=== PATIENT | female | born 1955 | race Caucasian/White ===

== ENCOUNTER 2020-11-01 14:40 | Inpatient (IN) | payer OTHER ==
[~2020-11-01] VITALS: Ht 152.4 cm; Wt 90.7 kg
[~2020-11-01 14:40] MED LIST: ASPI-231 PO; ATEN-60 PO; CLOP75TA28 PO; ENAL5TAB10 PO; IBUP800T27 PO; SIMV-13 PO
[2020-11-02] VITALS (7 sets, daily range): BP systolic 107–136; BP diastolic 53–82
[2020-11-02] MEDS ORDERED: HYDROcodone-ACET 5/325MG TAB PO PRN (01:30)
[2020-11-02] MEDS ORDERED: NITROGLYCERIN 0.4 MG SL TAB SL PRN (01:30)
[2020-11-02] MEDS ORDERED: ALBUTEROL SULF 2.5 MG/0.5ML(0.5%) NEB SOLN NEB PRN (01:30)
[2020-11-02] MEDS ORDERED: MORPHINE SULF INJ 2 MG/ML SYRINGE 1ML IV PRN ×2 (01:30)
[2020-11-02] MEDS ORDERED: OXYB10GE (02:57)
[2020-11-02] MEDS ORDERED: NITR0.4S29 SL (03:03)
[2020-11-02 05:39] LABS: Basophils # (auto) 0 10 ^3/uL (0-0.2); Basophils % (auto) 0.5 % (0.0-2.0); Eosinophils # (auto) 0.1 10 ^3/uL (0-0.8); Eosinophils % (auto) 2.6 % (0.0-7.0); Hematocrit 39.1 % (36.0-46.0); Hemoglobin 13.7 g/dL (12.2-16.2); Lymphocytes # (auto) 1.8 10 ^3/uL (0.4-5.4); Lymphocytes % (auto) 31.8 % (10.0-50.0); Mean Corpuscular Hemoglobin 30.9 pg (28.0-32.0); Mean Corpuscular Hgb Conc. 35.1 g/dL (32.0-36.0); Mean Corpuscular Volume 88.2 fL (80.0-100.0); Monocytes # (auto) 0.6 10 ^3/uL (0-1.3); Monocytes % (auto) 10.3 % (0.0-12.0); Neutrophils % (auto) 54.8 % (37.0-80.0); Red Blood Cells 4.43 10^6/uL (4.0-5.20); Red Cell Distribution Width 13.5 % (11.8-14.3); White Blood Cell 5.6 10^3/uL (4.4-10.8)
[2020-11-02 05:51] LABS: Calcium 8.5 mg/dL (8.5-10.1); Potassium 3.7 mmol/L (3.5-5.1)
[2020-11-02 05:52] LABS: INR 1.08 (0.9-1.15); Partial Thromboplastin Time 27.6 sec (23.0-31.2)
[2020-11-02 05:58] LABS: BUN/Creatinine Ratio 27.3
[2020-11-02] MEDS ORDERED: ASPirin 81 mg TAB PO SCH (10:00)
[2020-11-02] MEDS ORDERED: ATENOLOL 25 MG TAB PO SCH (10:00)
[2020-11-02] MEDS ORDERED: CLOPIDOGREL BISULFATE 75 MG TAB PO SCH (10:00)
[2020-11-02 10:21] LABS: Urine Bacteria NONE SEEN /hpf (None Seen); Urine Blood Negative /uL (Negative); Urine Mucus FEW (None Seen); Urine Specific Gravity 1.021 (1.001-1.035); Urine WBC 1 /hpf (0 - 5)
[2020-11-02] MEDS ORDERED: IODIXANOL 320MG/ML 100ML BTL IV ONE (12:05)
[2020-11-02] MEDS ORDERED: HEPARIN SODIUM (PORCINE) 5000 UNITS/ML 1ML VIAL ONE (12:05)
[2020-11-02] MEDS ORDERED: ANGIOMAX 250 MG VIAL IV ONE (12:05)
[2020-11-02] MEDS ORDERED: LIDOCAINE 2%HCL (LOCAL ANESTH.) INJ 20ML MDV ONE (12:05)
[2020-11-02] MEDS ORDERED: VERAPAMIL 2.5MG/ML INJ 2ML VIAL IV ONE (12:06)
[2020-11-02] MEDS ORDERED: fentaNYL CITRATE 100 MCG/2 ML VL ONE (12:08)
[2020-11-02] MEDS ORDERED: MIDAZOLAM HCL 1MG/1ML-2 ML VIAL ONE (12:08)
[2020-11-02] MEDS ORDERED: SODIUM CHL 0.9% 0 ML ONE (12:08)
[2020-11-02] MEDS ORDERED: ZINC220C8 PO (16:09)
[2020-11-02] MEDS ORDERED: ASCO100T4 PO (16:09)
[2020-11-02] MEDS ORDERED: OXYB10TA14 PO (16:09)
[2020-11-02] MEDS ORDERED: ALBU108A5 PO (16:09)
[2020-11-02] MEDS ORDERED: OMEGCAP2 PO (16:09)
[2020-11-02] MEDS ORDERED: FLUT110A INH (16:09)
[2020-11-02] MEDS ORDERED: MULT-1018 PO (16:09)
[2020-11-02] MEDS ORDERED: VITA100T3 PO (16:09)
[2020-11-02] MEDS ORDERED: CHOL20007 PO (16:09)
[2020-11-02] MEDS ORDERED: LOS25T PO (16:12)
[2020-11-02] MEDS ORDERED: ATORVASTATIN 20 MG TAB PO SCH (22:00)
== END 2020-11-02 19:50 | disposition home health service (06) | DRG 286 ==
LOC: TELE-CENTR 11-02 00:53
PROVIDERS: ADMIT Internal Medicine; ATTEND Internal Medicine
PROC: 4A023N7 Measurement of Cardiac Sampling and Pressure, Left Heart, Percutaneous Approach (ICD-10-PCS; principal; 2020-11-02)
PROC: B211YZZ Fluoroscopy of Multiple Coronary Arteries using Other Contrast (ICD-10-PCS; 2020-11-02)
DX: I25.10 Atherosclerotic heart disease of native coronary artery without angina pectoris (principal); U07.1 COVID-19; I10 Essential (primary) hypertension; E78.5 Hyperlipidemia, unspecified; Z82.49 Family history of ischemic heart disease and other diseases of the circulatory system; Z95.5 Presence of coronary angioplasty implant and graft; Z88.8 Allergy status to other drugs, medicaments and biological substances; Z20.822 Contact with and (suspected) exposure to COVID-19
CPT/HCPCS: 36415; 71045; 80048; 81001; 85025; 85610; 85730; 86850; 86900; 86901; 87426; 93005; 93458; 99152; 99153; G0378; J2250; Q9967

== ENCOUNTER 2023-12-25 12:23 | Inpatient (IN) | payer OTHER ==
[~2023-12-25] VITALS: Ht 149.9 cm; Wt 85.5 kg
[~2023-12-25 12:23] MED LIST changes: +ALBU108A5 PO; +ASCO100T4 PO; -ASPI-231 PO; +ASPI1TAB20 PO; +CHOL20007 PO; -ENAL5TAB10 PO; +FLUT110A INH; -IBUP800T27 PO; +LOS25T PO; +MULT-1018 PO; +NITR0.4S29 SL; +OMEGCAP2 PO; +OXYB10TA14 PO; -SIMV-13 PO; +SIMV40TA18 PO; +VITA100T3 PO; +ZINC220C8 PO
[2023-12-26] VITALS (15 sets, daily range): BP systolic 110–138; BP diastolic 35–77; PULSE 52–86; RESP 14–60; TEMP 97.6–98.4; O2SAT 93–99
[2023-12-26] MEDS ORDERED: MORPHINE SULFATE INJ 2 MG/ml SYRG IV PRN ×2 (01:30)
[2023-12-26] MEDS ORDERED: ACETAMINOPHEN 325 MG TAB PO PRN (01:30)
[2023-12-26] MEDS ORDERED: ONDANSETRON HCL 4 MG/2 ML VIAL IV PRN (01:30)
[2023-12-26] MEDS ORDERED: NITROGLYCERIN 0.4 MG SL TAB SL PRN (01:30)
[2023-12-26] MEDS ORDERED: DOCUSATE SOD 100 MG CAP PO PRN (01:30)
[2023-12-26] MEDS ORDERED: HYDROcodone-ACET 5/325MG TAB PO PRN (01:30)
[2023-12-26] MEDS ORDERED: DEXTROSE (50%) 50ML SYRG IV PRN (01:45)
[2023-12-26] MEDS ORDERED: METF-370 PO (03:02)
[2023-12-26] MEDS ORDERED: GAB100C PO (03:03)
[2023-12-26] MEDS: ACCU-CHEK COMFORT CURVE STRIP VI SCH (06:29)
[2023-12-26] MEDS: InsuLIN REG 1unit/0.01ml Soln (100units/ml) SC SCH (06:29)
[2023-12-26 07:52] LABS: INR 1.07 (0.9-1.15); Partial Thromboplastin Time 33.6 SEC (24.5-34.5); Prothrombin Time 11.5 sec (9.3-11.8)
[2023-12-26 07:55] LABS: Chloride 109 mmol/L (98-107); Sodium 141 mmol/L (136-145)
[2023-12-26 07:56] LABS: Anion Gap 7 (5-15); Carbon Dioxide 25 mmol/L (20-30)
[2023-12-26 07:59] LABS: Basophils # (auto) 0 10 ^3/uL (0-0.2); Basophils % (auto) 0.6 % (0.0-2.0); Eosinophils # (auto) 0.1 10 ^3/uL (0-0.8); Eosinophils % (auto) 3.1 % (0.0-7.0); Hematocrit 41.3 % (36.0-46.0); Hemoglobin 14.6 g/dL (12.2-16.2); Lymphocytes # (auto) 1.8 10 ^3/uL (0.4-5.4); Lymphocytes % (auto) 38.2 % (10.0-50.0); Mean Corpuscular Hemoglobin 31.5 pg (28.0-32.0); Mean Corpuscular Hgb Conc. 35.4 g/dL (32.0-36.0); Mean Corpuscular Volume 88.9 fL (80.0-100.0); Monocytes # (auto) 0.5 10 ^3/uL (0-1.3); Monocytes % (auto) 10.8 % (0.0-12.0); Neutrophils # (auto) 2.3 10 ^3/uL (1.6-8.6); Neutrophils % (auto) 47.3 % (37.0-80.0); Nucleated Red Blood Cells % 0.1 %; Platelet Count (auto) 187 10^3/uL (140-450); Red Blood Cells 4.65 10^6/uL (4.0-5.20); Red Cell Distribution Width 13.4 % (11.8-14.3); White Blood Cell 4.8 10^3/uL (4.4-10.8)
[2023-12-26 08:01] LABS: BUN/Creatinine Ratio 20.3 (10.0-20.0); Blood Urea Nitrogen 13 mg/dL (9-23); Glucose 102 mg/dL (74-106)
[2023-12-26] MEDS: ASPirin-EC 81 mg tab PO SCH (09:26)
[2023-12-26] MEDS ORDERED: ENOXAPARIN SOD 100 MG/1 ML SYRINGE SC SCH (10:00)
[2023-12-26 14:15] LABS: Urine Bacteria FEW /hpf (None Seen); Urine Blood Negative /uL (Negative); Urine Clarity Clear (Clear); Urine Color Light-Yellow (Yellow); Urine Protein, UAD Negative (Negative); Urine Specific Gravity 1.013 (1.001-1.035); Urine Urobilinogen Normal (Negative); Urine WBC <1 /hpf (0 - 5); Urine pH 6.5 (5.0-9.0)
[2023-12-26] MEDS: HEPARIN IN NS 1000Units/500mL 1,500 ML ONE (15:56)
[2023-12-26] MEDS: IODIXANOL 320MG/ML 100ML BTL IV ONE (15:56)
[2023-12-26] MEDS: MIDAZOLAM HCL 2MG/2ML 2ml VIAL (1mg/ml) ONE (16:17)
[2023-12-26] MEDS: fentaNYL CITRATE 100 MCG/2 ML VL ONE (16:17)
[2023-12-26] MEDS: ANGIOMAX 250 MG VIAL IV ONE (16:18)
[2023-12-26] MEDS: LIDOCAINE 2%HCL (LOCAL ANESTH.) INJ 20ML MDV ONE (16:18)
[2023-12-26] MEDS: SODIUM CHL 0.9% 50 ML ONE (16:18)
[2023-12-26] MEDS: VERAPAMIL 2.5MG/ML INJ 2ML VIAL IV ONE (16:41)
[2023-12-26] MEDS: HEPARIN SODIUM (PORCINE) 5000 UNITS/ML 1ML VIAL ONE (16:53)
[2023-12-26] MEDS: ALBUTEROL SULF 2.5 MG/0.5ML(0.5%) NEB SOLN NEB SCH (19:49)
[2023-12-26] MEDS: IPRATROPIUM BROM 0.5 MG/2.5ML INH SOL NEB SCH (19:49)
[2023-12-27] VITALS (10 sets, daily range): BP systolic 121–137; BP diastolic 52–72; PULSE 63–89; RESP 14–18; TEMP 97.7–98.1; O2SAT 95–100
[2023-12-27] MEDS: ATORVASTATIN 20 MG TAB PO SCH (00:07)
[2023-12-27 08:25] LABS: Chloride 109 mmol/L (98-107); Potassium 3.8 mmol/L (3.5-5.1); Sodium 140 mmol/L (136-145)
[2023-12-27 08:26] LABS: Anion Gap 6 (5-15); Carbon Dioxide 25 mmol/L (20-30)
[2023-12-27 08:27] LABS: Calcium 9.8 mg/dL (8.7-10.4)
[2023-12-27 08:32] LABS: BUN/Creatinine Ratio 20.7 (10.0-20.0); Blood Urea Nitrogen 12 mg/dL (9-23); Glucose 117 mg/dL (74-106)
[2023-12-27 08:41] LABS: Basophils # (auto) 0 10 ^3/uL (0-0.2); Basophils % (auto) 0.5 % (0.0-2.0); Eosinophils # (auto) 0.1 10 ^3/uL (0-0.8); Eosinophils % (auto) 2.1 % (0.0-7.0); Hematocrit 40.6 % (36.0-46.0); Hemoglobin 14.1 g/dL (12.2-16.2); Lymphocytes # (auto) 1.6 10 ^3/uL (0.4-5.4); Mean Corpuscular Hemoglobin 30.7 pg (28.0-32.0); Mean Corpuscular Hgb Conc. 34.7 g/dL (32.0-36.0); Mean Corpuscular Volume 88.6 fL (80.0-100.0); Monocytes # (auto) 0.6 10 ^3/uL (0-1.3); Monocytes % (auto) 11.6 % (0.0-12.0); Neutrophils % (auto) 55.8 % (37.0-80.0); Nucleated Red Blood Cells % 0.3 %; Platelet Count (auto) 173 10^3/uL (140-450); Red Blood Cells 4.58 10^6/uL (4.0-5.20); Red Cell Distribution Width 13.4 % (11.8-14.3); White Blood Cell 5.4 10^3/uL (4.4-10.8)
[2023-12-27 09:45] LABS: Hepatitis B Surface Antigen Negative (Negative)
[2023-12-27 10:07] LABS: Hepatitis C Antibody Negative (Negative)
[2023-12-27] MEDS ORDERED: CLOP75TA70 PO (15:33)
[2023-12-27] MEDS ORDERED: FLUT250M2 INH (15:33)
== END 2023-12-27 16:15 | disposition home or self-care (01) | DRG 287 ==
LOC: CENTRAL 12-26 00:59 → TELE-CENTR 12-26 02:49
PROVIDERS: ADMIT Internal Medicine; ATTEND Internal Medicine
PROC: 4A023N7 Measurement of Cardiac Sampling and Pressure, Left Heart, Percutaneous Approach (ICD-10-PCS; principal; 2023-12-26)
PROC: B2111ZZ Fluoroscopy of Multiple Coronary Arteries using Low Osmolar Contrast (ICD-10-PCS; 2023-12-26)
DX: I25.110 Atherosclerotic heart disease of native coronary artery with unstable angina pectoris (principal); E11.9 Type 2 diabetes mellitus without complications; E66.01 Morbid (severe) obesity due to excess calories; E78.5 Hyperlipidemia, unspecified; J45.909 Unspecified asthma, uncomplicated; M79.7 Fibromyalgia; I10 Essential (primary) hypertension; Z95.5 Presence of coronary angioplasty implant and graft; Z88.8 Allergy status to other drugs, medicaments and biological substances; Z79.899 Other long term (current) drug therapy; Z82.49 Family history of ischemic heart disease and other diseases of the circulatory system; Z80.1 Family history of malignant neoplasm of trachea, bronchus and lung; Z68.38 Body mass index [BMI] 38.0-38.9, adult
CPT/HCPCS: 36415; 80048; 81001; 82962; 84484; 85025; 85610; 85730; 86803; 86850; 86900; 86901; 87081; 87340; 93005; 93454; 94640; 99152; G0378; J1815; J2250; Q9967

== ENCOUNTER 2024-10-28 14:38 | Inpatient (IN) | payer OTHER ==
[~2024-10-28] VITALS: Ht 149.9 cm; Wt 87.9 kg
[~2024-10-28 14:38] MED LIST changes: -ASCO100T4 PO; -CHOL20007 PO; -CLOP75TA28 PO; +CLOP75TA70 PO; +FLUT250M2 INH; +GAB100C PO; +METF-370 PO; -MULT-1018 PO; -OMEGCAP2 PO; -OXYB10TA14 PO; -VITA100T3 PO; -ZINC220C8 PO
[2024-10-28] MEDS ORDERED: NITROGLYCERIN 0.4 MG SL TAB SL PRN (20:15)
[2024-10-28] MEDS ORDERED: MORPHINE SULFATE INJ 2 MG/ml SYRG IV PRN (20:15)
[2024-10-28] MEDS ORDERED: ONDANSETRON HCL 4 MG/2 ML VIAL IV PRN (20:15)
[2024-10-28] MEDS ORDERED: HYDROcodone-ACET 5/325MG TAB PO PRN (20:15)
[2024-10-28 20:48] VITALS: BP 124/92; PULSE 74; RESP 18; TEMP 98.1; O2SAT 92
[2024-10-28 21:00] VITALS: BP 124/92; PULSE 74; RESP 18; TEMP 98.1; O2SAT 92
[2024-10-28] MEDS: ATORVASTATIN 20 MG TAB PO SCH (22:00)
[2024-10-28 22:03] VITALS: PULSE 74; RESP 18; O2SAT 92
[2024-10-28] MEDS: ACETAMINOPHEN 325 MG TAB PO PRN (23:13)
[2024-10-29] VITALS (10 sets, daily range): BP systolic 123–167; BP diastolic 61–78; PULSE 64–80; RESP 9–18; TEMP 36.5; O2SAT 93–99
--- NOTE | 2024-10-29 01:04 | DVHHP2 ---
Admitting Diagnosis: Unstable Angina History of Present Illness History Source: Patient Exam Limitations: No limitations HPI Mrs. Randa Leonard is a 69 yo female with a history of SD with cardiac stents , Hypertension, DM, Asthma, Fibromyalgia, hyperlipidemia who [place] [facility] [place] angina for therapeutic coronary angiogram intervention. [facility] therapeutic coronary angiogram intervention. Patient had [place] [facility] with left sided chest pain radiating to left arm, neck and across right chest wall onset x 3 days ago. Patient reports she has been experiencing chest tightness with associated shortness of breath and fatigue. Patient denies fevers, chills, N/VD, headaches, dizziness, vision changes, cough, congestion, abdominal pain, dysuria, numbness or tingling of extremities. Patient admitted for further intervention. CXR: no acute disease CTA chest: no evidence of acute intrathoracic abnormality, no evidence of pulmonary embolism, no aortic aneurysm or dissection. troponin levels: 0.000, 0.000, 0.030 INR 1.01, PT 11.7, PTT 34.7 Home Meds Active Scripts Clopidogrel Bisulfate (CLOPIDOGREL) 75 Mg Tab, 1 TAB PO DAILY, #30 TAB 5 Refills Prov:MENDOZA RASCON MD 12/27/23 Reported Medications Gabapentin (Gabapentin) 100 Mg Cap, 1 CAP PO DAILY 12/26/23 Metformin Hydrochloride (Metformin Hcl) 500 Mg Tab, 1 TAB PO DAILY 12/26/23 Losartan Potassium (Losartan Potassium) 25 Mg Tab, 1 TAB PO DAILY 11/02/20 Albuterol Sulfate (Albuterol Sulfate Hfa) 108 Mcg/Act Aer, 1 PUFF PO PRN 11/02/20 Nitroglycerin (NTROSTAT SUBLINGUAL) 0.4 Mg Sl, 0.4 MG SL PRN, TAB *MAY REPEAT EVERY 5 MINUTES X 3 TOTAL IF NO RELIEF, INITIATE ANALGESIC THERAPY. NOTIFY PHYSICIAN *Do not crush. 11/02/20 Aspirin (Aspir-81) 81 Mg Tab, 1 TAB PO DAILY, #30 TAB 5 Refills 06/07/18 Simvastatin (Simvastatin) 40 Mg Tab, 1 TAB PO QPM, #30 TAB 5 Refills 06/07/18 Atenolol (Atenolol) 25 Mg Tab, 1 TAB PO HS, #30 TAB 5 Refills 06/07/18 Past Medical History Cardiac: HTN, SD, Hyperlipidemia Pulmonary: Asthma Central Nervous System: Periperal neuropathy Rheumotologic: Fibromyalgia Patient Family History: Cardiac pacemaker G8 BROTHER Cardiovascular disease G8 FATHER, , Cause: Heart disease FH: lung cancer G8 MOTHER, , Cause: Lung cancer Stent G8 BROTHER Smoker: No Hx (Negative) Alocohol: None Drugs: None Domestic Violence: Neg Review of Systems Constitutional: No symptom reported Ears, Nose, & Throat: No symptom reported Eyes: No symptom reported Pulmonary/Respiratory: Dyspnea Cardiovascular: Chest Pain Gastrointestinal: No symptom reported Genitourinary: No symptom reported Musculoskeletal: No symptom reported Skin: No symptom reported Psychiatric: No symptom reported Endocrine: No symptom reported Hemotologic/Lymphatic: No symptom reported H&P Exam Vital Signs Vital Signs Date Time Temp Pulse Resp B/P (MAP) Pulse Ox O2 Delivery O2 Flow Rate FiO2 10/28/24 21:00 98.1 74 18 124/92 (103) 92 98.1 General Appeara: Well developed, Well nourished, Normal Appearance Head Exam: Normal inspection Neck Exam: Normal inspection, Non-tender, Normal alignment Eye Exam: bilateral eye Normal inspection, bilateral eye PERRL, bilateral eye EOMI Ear Exam: bilateral ear Auricle normal Nasal Exam: Normal inspection Mouth: Normal Inspection Pulmonary/Respiratory: Normal inspection, Normal breath sounds, Chest non- tender, Lungs clear Cardiovascular/Chest: Normal inspection, Regular rate, Normal Rhythm Peripheral Pulses: 2+ dorsalis pedis (R), 2+ dorsalis pedis (L), 2+ Radial (R), 2+ Radial (L) Abdominal Exam: Normal bowel sounds, Soft, No tenderness Rectal Exam: Deferred FIRM ADMINISTRATOR Exam: Normal hearing, Normal speech, PERRL Motor/Sensory: Normal sensory function, Normal motor function Neuro/Mental St: Alert, Oriented Appearance: Appropriate appearance, Appropriate insight Eye contact/ Speech: Cooperative, Good eye contact, Normal speech Thoughts/Psych: Normal thought pattern Skin Exam: Normal inspection, Normal color, Warm/dry Labs/Xrays Labs Test 10/28/24 22:36 Range/Units Troponin I High Sensitivity < 3 L </=34 ng/L Assessment/Plan Problem List: (1) Unstable angina Plan This is a 69 yo female with known history of SD with cardiac stents, asthma, HLD, HTN, neuropathy, fibromyalgia, who presents as [place] [facility], unstable angina for therapeutic cardiac angiogram intervention. 1. Unstable Angina 2. Chronic Hypertension 3. hx of Asthma 4. Fibromyalgia 5. Hyperlipidemia Plan Admit Telemetry unit Cardiology consultation appreciated, ASA , Statin, Beta Roula Serial troponin levels BMP, CBC NPO after midnight Discussed all above with patient who verbalizes agreement and understanding of care plan. All questions were answered. Discussed with admitting/supervising MD. Plan discussed with: Patient, Other Code Visit Code Visit Total Time (mins): 45 NETO FAIRCHILD SENIOR ADMINISTRATIVE ASSISTANT Oct 29, 2024 01:04
[2024-10-29 06:26] LABS: Hematocrit 36.4 % (36.0-46.0); Hemoglobin 12.5 g/dL (12.2-16.2); Mean Corpuscular Hemoglobin 29.9 pg (28.0-32.0); Mean Corpuscular Volume 87.0 fL (80.0-100.0); Nucleated Red Blood Cells % 0.2 %
[2024-10-29 06:29] LABS: INR 1.04 (0.9-1.15); Prothrombin Time 11.0 sec (9.3-11.8)
[2024-10-29 06:33] LABS: Potassium 3.9 mmol/L (3.5-5.1); Sodium 142 mmol/L (136-145)
[2024-10-29 06:34] LABS: Anion Gap 6 (5-15); Carbon Dioxide 28 mmol/L (20-31)
[2024-10-29 06:35] LABS: Calcium 9.2 mg/dL (8.7-10.4)
[2024-10-29 06:39] LABS: BUN/Creatinine Ratio 24.1 (10.0-20.0); Blood Urea Nitrogen 13 mg/dL (9-23); Glucose 87 mg/dL (74-106)
[2024-10-29 06:41] LABS: Chloride 108 mmol/L (98-107)
[2024-10-29] MEDS: ATORVASTATIN 20 MG TAB PO SCH (09:15)
[2024-10-29 09:39] LABS: Magnesium 1.9 mg/dL (1.6-2.6)
[2024-10-29 09:41] LABS: Cholesterol 137.0 mg/dL (< 200); HDL Cholesterol 46.0 mg/dL (40-59)
[2024-10-29 09:44] LABS: Triglycerides 154.0 mg/dL (< 150)
[2024-10-29] MEDS: PANTOPRAZOLE 40 MG/10 ML VIAL INJ IV SCH (10:00)
[2024-10-29] MEDS ORDERED: ATENOLOL 25 MG TAB PO SCH (10:00)
[2024-10-29] MEDS: LIDOCAINE 2%HCL (LOCAL ANESTH.) INJ 20ML MDV ONE (10:27)
[2024-10-29] MEDS: SODIUM CHL 0.9% 0 ML ONE (10:35)
[2024-10-29] MEDS: VERAPAMIL 2.5MG/ML INJ 2ML VIAL IV ONE ×2 (10:35→11:21)
[2024-10-29] MEDS: HEPARIN SODIUM (PORCINE) 5000 UNITS/ML 1ML VIAL ONE (10:35)
[2024-10-29] MEDS: ANGIOMAX 250 MG VIAL IV ONE (10:35)
[2024-10-29] MEDS: MIDAZOLAM HCL 2MG/2ML 2ml VIAL (1mg/ml) ONE ×2 (10:35→12:16)
[2024-10-29] MEDS: fentaNYL CITRATE 100 MCG/2 ML VL ONE ×2 (10:35→12:17)
--- NOTE | 2024-10-29 12:29 | DVHOP2 ---
Operative Report - 2 Report Details Date: 10/29/24 Preop Diagnosis: CAD Postop Diagnosis: CAD Surgeon: Jb Maya MD Anesthesiologist: Conscious sedation Anesthesia: Mac, Local Consent: The patient was informed of the risks and benefits of the procedure. These include but are not limited to complications of anesthesia, postoperative infection, incomplete relief of symptoms, recurrence of symptoms, damage to blood vessels, nerves and tendons, deep venous thrombosis, pulmonary embolism and possible need for repeat surgery in the future. Complications: No complications Findings: Vasospasm Indications for Surgery: Chest pain Name of Procedure Performed Left heart catheterization. Bilateral cine coronary angiography. Left ventriculography. Intracoronary nitroglycerin administration Procedure Details Procedure Details: Prior local anesthesia with 2% lidocaine to the right groin and full informed consent obtained the patient was prepped and draped in usual fashion followed by placement of a six Lao sheath into the right femoral artery under fluoroscopic and ultrasound guidance. We attempted both radials however they were rather small and not amenable to angiography. Abhijit catheters were used to cannulate both right and left coronary ostia. Ventriculography was performed. No complications. Hemodynamics aortic blood pressure was 135/80. End-diastolic pressure was 15. There was no gradient across the aortic valve on pullback. Coronary anatomy: RCA is large and normal. There was slight spasm and dampening of pressure waveforms in the proximal segment of the RCA. This was relieved with 200 mcg of nitroglycerin at which point spasm was relieved and pressures were normalized upon cannulation. This is consistent with a vasospastic angina/vasospasm of the RCA. PDA and posterolateral branches are also normal. Left main is large and normal. Left anterior descending is a large vessel it is normal in its proximal mid and distal segments. The proximal segment has been stented without in stent restenosis. Diagonals are free of significant disease with the exception of the 1st diagonal which has been jailed and has a proximally 50-60% stenosis. Circumflex is large with two marginals free of significant disease. Ventriculography was performed in the MCLAIN projection showing an EF of approximately 55%. Impression: Normal left ventricular ejection fraction. Mildly elevated left ventricular end-diastolic pressure at rest. Vasospasm of the RCA we will leave with nitroglycerin. No significant in stent restenosis. Patent LAD circumflex and RCA otherwise. Recommendations continue with medical therapy. Risk factor modification to continue. Initiate calcium channel blockers. Condition Good Disposition Date of Service: Oct 29, 2024 Billing Provider: JB MAYA Sr., MD Cardiology Common Codes: 97601-[facility] INP/OBS CARE (High) Cardiology Procedure Codes: 15135-[facility] HE[facility] CATH W/INTRA INJ (Left heart catheterization. Bilateral cine coronary angiography. Left ventriculography. Intracoronary administration of nitroglycerin for the relief of vasospasm.) JB MAYA Sr., MD Oct 29, 2024 12:29
--- NOTE | 2024-10-29 13:11 | DVHCONRES ---
Date Seen: Oct 29, 2024 Resident Creating Document: TONYA COCHRAN RESDIENT History of Present Illness This is a 69-year-old female with past medical history of coronary artery disease, hypertension, diabetes, asthma, fibromyalgia and dyslipidemia came to the hospital due to chest pain sensory days. She describes the pain as generalized substernal pain, radiating to the neck and left shoulder, 7/10, intermittent with no clear exacerbating or relieving factor. She also reports of mild shortness of breaths, sweating and generalized weakness. She denies fev er, cough, palpitation, or any recent sick contacts chest trauma. PMHx: coronary artery disease, hypertension, diabetes, asthma, fibromyalgia and dyslipidemia Social history: Ex-smoker with 10 pack year history, denies current smoking or any drug use. Home medication: Losartan 25 mg, simvastatin, clopidogrel, gabapentin, metoprolol, aspirin, clopidogrel Allergic history: Nifedipine, procaine, squash and zucchini Patient seen and examined at the bedside. Patient is feeling better since admission but still complained of mild shortness of breaths. Family History: Cardiac pacemaker G8 BROTHER Cardiovascular disease G8 FATHER, , Cause: Heart disease FH: lung cancer G8 MOTHER, , Cause: Lung cancer Stent G8 BROTHER Allergies: Coded Allergies: Nifedipine (Verified Allergy, Mild, 06/06/18) Procaine (Verified Allergy, Mild, 06/06/18) Uncoded Allergies: squash (Allergy, Unknown, 12/26/23) zuchini (Allergy, Unknown, 12/26/23) Home Meds Active Scripts Clopidogrel Bisulfate (CLOPIDOGREL) 75 Mg Tab, 1 TAB PO DAILY, #30 TAB 5 Refills Prov:MENDOZA RASCON MD 12/27/23 Reported Medications Gabapentin (Gabapentin) 100 Mg Cap, 1 CAP PO DAILY 12/26/23 Metformin Hydrochloride (Metformin Hcl) 500 Mg Tab, 1 TAB PO DAILY 12/26/23 Losartan Potassium (Losartan Potassium) 25 Mg Tab, 1 TAB PO DAILY 11/02/20 Albuterol Sulfate (Albuterol Sulfate Hfa) 108 Mcg/Act Aer, 1 PUFF PO PRN 11/02/20 Nitroglycerin (NTROSTAT SUBLINGUAL) 0.4 Mg Sl, 0.4 MG SL PRN, TAB *MAY REPEAT EVERY 5 MINUTES X 3 TOTAL IF NO RELIEF, INITIATE ANALGESIC THERAPY. NOTIFY PHYSICIAN *Do not crush. 11/02/20 Aspirin (Aspir-81) 81 Mg Tab, 1 TAB PO DAILY, #30 TAB 5 Refills 06/07/18 Simvastatin (Simvastatin) 40 Mg Tab, 1 TAB PO QPM, #30 TAB 5 Refills 06/07/18 Atenolol (Atenolol) 25 Mg Tab, 1 TAB PO HS, #30 TAB 5 Refills 06/07/18 Current Medications Current Medications Medications (Trade) Dose Ordered Sig/Luke Route PRN Reason Start Time Stop Time Status Last Admin Nitroglycerin (Ntrostat Sublingual) 0.4 mg Q5MINP PRN SL FOR CHEST PAIN 10/28/24 20:15 Morphine Sulfate 2 mg Q30M PRN IV FOR CHEST PAIN 10/28/24 20:15 Ondansetron HCl (Zofran) 4 mg Q6HPRN PRN IV NAUSEA / VOMITING 10/28/24 20:15 Aspirin 81 mg DAILY PO 10/29/24 10:00 Atorvastatin Calcium (Lipitor) 40 mg HS PO 10/28/24 22:00 10/29/24 09:10 DC Acetaminophen (Tylenol Tablet) 650 mg Q6HPRN PRN PO PAIN SCALE 1-3 OR TEMP>100.4 10/28/24 20:15 10/28/24 23:13 Pantoprazole Sodium (Protonix) 40 mg DAILY IV 10/29/24 10:00 Acetaminophen/ Hydrocodone Bitart ([place] 5/325MG Tab) 1 tab Q6HPRN PRN PO PAIN SCALE 1 THRU 6 10/28/24 20:15 10/28/24 23:01 DC Atenolol (Tenormin Tablet) 25 mg DAILY PO 10/29/24 10:00 Acetaminophen/ Hydrocodone Bitart ([place] 5/325MG Tab) 1 tab Q6HPRN PRN PO PAIN SCALE 4 THRU 6 10/28/24 23:00 Atorvastatin Calcium (Lipitor) 80 mg HS PO 10/29/24 09:15 Vital Signs Vital Signs Date Time Temp Pulse Resp B/P (MAP) Pulse Ox O2 Delivery O2 Flow Rate FiO2 10/29/24 12:35 69 11 152/63 (92) 97 10/29/24 12:20 97.7 97.7 10/29/24 08:00 Room Air* 0 21 Physical Exam General Appearance: Alert, Oriented X3, Cooperative, No acute distress HEENT: Atraumatic, PERRLA, EOMI, Mucous membrane moist/pink Respiratory: Clear to auscultation, Normal air movement Cardiovascular: Regular rate, Normal S1, Normal S2, No murmurs, no chest wall tenderness Abdominal: Normal bowel sounds, Soft, No tenderness, No hepatospenomegaly, No masses Extremities: No clubbing, No cyanosis, No edema, Normal pulses, No tenderness/swelling Skin: No rashes, No breakdown, No significant lesion Neuro: Normal gait, Normal speech, Strength at 5/5 X4 ext, Normal tone, Sensation intact, Cranial nerves 3-12 NL, Reflexes 2+ Psych/Mental Status: Mental status NL, Mood NL Labs/Diagnostic Data Labs Test 10/29/24 05:19 Range/Units White Blood Count 4.2 L 4.4-10.8 10^3/uL Red Blood Count 4.18 4.0-5.20 10^6/uL Hemoglobin 12.5 12.2-16.2 g/dL Hematocrit 36.4 36.0-46.0 % Mean Corpuscular Volume 87.0 80.0-100.0 fL Mean Corpuscular Hemoglobin 29.9 28.0-32.0 pg Mean Corpuscular Hemoglobin Concent 34.4 32.0-36.0 g/dL Red Cell Distribution Width 13.6 11.8-14.3 % Platelet Count 155 140-450 10^3/uL Mean Platelet Volume 8.3 6.9-10.8 fL Neutrophils (%) (Auto) 50.9 37.0-80.0 % Lymphocytes (%) (Auto) 33.7 10.0-50.0 % Monocytes (%) (Auto) 11.8 0.0-12.0 % Eosinophils (%) (Auto) 3.1 0.0-7.0 % Basophils (%) (Auto) 0.5 0.0-2.0 % Neutrophils # (Auto) 2.1 1.6-8.6 10 ^3/uL Lymphocytes # (Auto) 1.4 0.4-5.4 10 ^3/uL Monocytes # (Auto) 0.5 0-1.3 10 ^3/uL Eosinophils # (Auto) 0.1 0-0.8 10 ^3/uL Basophils # (Auto) 0 0-0.2 10 ^3/uL Nucleated Red Blood Cells 0.2 % Prothrombin Time 11.0 9.3-11.8 sec Prothrombin Time INR 1.04 0.9-1.15 Sodium Level 142 136-145 mmol/L Potassium Level 3.9 3.5-5.1 mmol/L Chloride Level 108 H 98-107 mmol/L Carbon Dioxide Level 28 20-31 mmol/L Anion Gap 6 5-15 Blood Urea Nitrogen 13 9-23 mg/dL Creatinine 0.54 L 0.550-1.02 mg/dL Glomerular Filtration Rate Calc 101 >90 mL/min BUN/Creatinine Ratio 24.1 H 10.0-20.0 Serum Glucose 87 74-106 mg/dL Calcium Level 9.2 8.7-10.4 mg/dL Magnesium Level 1.9 1.6-2.6 mg/dL Troponin I High Sensitivity 4 </=34 ng/L B-Type Natriuretic Peptide 36.89 0-100 pg/mL Triglycerides Level 154 H < 150 mg/dL Cholesterol Level 137 < 200 mg/dL LDL Cholesterol 78 < 100 mg/dL HDL Cholesterol 46 40-59 mg/dL Thyroid Stimulating Hormone (TSH) 1.26 0.55-4.78 uIU/mL Assessment Chest pain, possibly cardiac, likely due to coronary vasospasm Hypertension History of coronary artery disease Dyslipidemia Diabetes type 2 Fibromyalgia * Serial trop I and BNP is within normal limits * Left-sided heart catheterization performed, showed normal LVEF, mild elevated LV end-diastolic pressure, vasospasm of RCA which improved with nitroglycerin, patent LAD, circumflex and RCA Plan/recommendation * Switched beta kayden to Cardizem * Continue dual antiplatelet * Continue home meds * Rest of plan per primary team * We sign off the patient * Discharge plan from Cardiology standpoint: Switch beta kayden to Cardizem 120 mg daily, follow up with the Cardiology on outpatient basis Caregiver giving us the opportunity to take care of your patient. Please call back if you have any question/concern. Plan discussed with: Patient, Other (RN) TONYA COCHRAN Oct 29, 2024 13:11
[2024-10-29] MEDS: LOSARTAN POTASSIUM 25 MG TAB PO ONE (13:15)
[2024-10-29] MEDS ORDERED: dilTIAZem 120MG ER CAP PO ONE (13:15)
[2024-10-29] MEDS ORDERED: dilTIAZem 120MG ER CAP PO SCH (13:21)
[2024-10-29] MEDS ORDERED: DILT120T8 PO (13:55)
--- NOTE | 2024-10-29 13:57 | DVHDS2 ---
Discharge Summary Date of Admission Oct 28, 2024 at 20:08 Date of Discharge: Oct 29, 2024 Labs/Diagnostic Data: Laboratory Results Test 10/29/24 05:19 White Blood Count 4.2 10^3/uL (4.4-10.8) Red Blood Count 4.18 10^6/uL (4.0-5.20) Hemoglobin 12.5 g/dL (12.2-16.2) Hematocrit 36.4 % (36.0-46.0) Mean Corpuscular Volume 87.0 fL (80.0-100.0) Mean Corpuscular Hemoglobin 29.9 pg (28.0-32.0) Mean Corpuscular Hemoglobin Concent 34.4 g/dL (32.0-36.0) Red Cell Distribution Width 13.6 % (11.8-14.3) Platelet Count 155 10^3/uL (140-450) Mean Platelet Volume 8.3 fL (6.9-10.8) Neutrophils (%) (Auto) 50.9 % (37.0-80.0) Lymphocytes (%) (Auto) 33.7 % (10.0-50.0) Monocytes (%) (Auto) 11.8 % (0.0-12.0) Eosinophils (%) (Auto) 3.1 % (0.0-7.0) Basophils (%) (Auto) 0.5 % (0.0-2.0) Neutrophils # (Auto) 2.1 10 ^3/uL (1.6-8.6) Lymphocytes # (Auto) 1.4 10 ^3/uL (0.4-5.4) Monocytes # (Auto) 0.5 10 ^3/uL (0-1.3) Eosinophils # (Auto) 0.1 10 ^3/uL (0-0.8) Basophils # (Auto) 0 10 ^3/uL (0-0.2) Nucleated Red Blood Cells 0.2 % Prothrombin Time 11.0 sec (9.3-11.8) Prothrombin Time INR 1.04 (0.9-1.15) Sodium Level 142 mmol/L (136-145) Potassium Level 3.9 mmol/L (3.5-5.1) Chloride Level 108 mmol/L (98-107) Carbon Dioxide Level 28 mmol/L (20-31) Anion Gap 6 (5-15) Blood Urea Nitrogen 13 mg/dL (9-23) Creatinine 0.54 mg/dL (0.550-1.02) Glomerular Filtration Rate Calc 101 mL/min (>90) BUN/Creatinine Ratio 24.1 (10.0-20.0) Serum Glucose 87 mg/dL (74-106) Calcium Level 9.2 mg/dL (8.7-10.4) Magnesium Level 1.9 mg/dL (1.6-2.6) Troponin I High Sensitivity 4 ng/L (</=34) B-Type Natriuretic Peptide 36.89 pg/mL (0-100) Triglycerides Level 154 mg/dL (< 150) Cholesterol Level 137 mg/dL (< 200) LDL Cholesterol 78 mg/dL (< 100) HDL Cholesterol 46 mg/dL (40-59) Thyroid Stimulating Hormone (TSH) 1.26 uIU/mL (0.55-4.78) Other Laboratory Tests 10/29/24 05:19 Brief Hx & Hospital Course: 69-year-old female with a known history of CAD status post PCI with two stents in initially presented to the hospital with the chest pressure found to have unstable angina. Patient was at [facility] as there was no heart catheterization available with the intervention patient was transferred to higher level of care. Patient was accepted by [facility]. Patient underwent left heart catheterization which shows vasospasm no indication for any intervention. Patient's beta kayden has been stopped and started on diltiazem. Patient is currently stable to be discharged. Condition at Discharge: Stable Final Diagnosis/Problems List This is a 69 yo female with known history of RI with cardiac stents, asthma, HLD, HTN, neuropathy, fibromyalgia, who [place] [facility] [place], unstable angina for therapeutic cardiac angiogram intervention. 1. Unstable Angina 2. Chronic Hypertension 3. hx of Asthma 4. Fibromyalgia 5. Hyperlipidemia Discharge Disposition: Home SNF Discharge Will this Physician continue t: No Discharge Instruct/Medications Diet: Cardiac 2g Na,low cholest Activity: No Restrictions, As Tolerated Follow Up/Referral: Follow up with the PCP in 1-2 weeks Follow up with Dr. Maya in 1-2 Medications: Cardizem as prescribed, discontinue atenolol. Scheduled Albuterol Sulfate (Albuterol Sulfate Hfa), 1 PUFF PO PRN, (Reported) Aspirin (Aspir-81), 1 TAB PO DAILY, (Reported) Clopidogrel Bisulfate (Clopidogrel), 1 TAB PO DAILY Diltiazem Hcl (Cardizem), 120 MG PO DAILY Gabapentin (Gabapentin), 1 CAP PO DAILY, (Reported) Losartan Potassium (Losartan Potassium), 1 TAB PO DAILY, (Reported) Metformin Hydrochloride (Metformin Hcl), 1 TAB PO DAILY, (Reported) Nitroglycerin (Ntrostat Sublingual), 0.4 MG SL PRN, (Reported) Simvastatin (Simvastatin), 1 TAB PO QPM, (Reported) Discontinued Medications Atenolol (Atenolol), 1 TAB PO HS, (Reported) Discharge Statement: "Patient was advised to return to the ER or call 911 if any headaches, dizziness, shortness of breath, chest pain, abdominal pain, bleeding, fevers, or worsening of medical condition. Patient was counseled about treatment plan, medications, possible side effects, patientverbalized understanding. All questions were answered to the best of my ability. This discharge took greater then 30 minutes in planning, reviewing documentation, counseling the patient, and discussing with other team members." ASSESSMENT ASSESSMENT Assessment This is a 69 yo female with known history of RI with cardiac stents, asthma, HLD, HTN, neuropathy, fibromyalgia, who [place] [facility] [place], unstable angina for therapeutic cardiac angiogram intervention. 1. Unstable Angina 2. Chronic Hypertension 3. hx of Asthma 4. Fibromyalgia 5. Hyperlipidemia Date of Service: Oct 29, 2024 Billing Provider: MENDOZA RASCON MD Common Visit Codes: NOT BILLABLE MENDOZA RASCON MD Oct 29, 2024 13:57
[2024-10-29] MEDS: HYDROcodone-ACET 5/325MG TAB PO PRN (15:33)
[2024-10-29] MEDS: dilTIAZem 120MG ER CAP PO ONE (17:56)
[2024-10-30] MEDS ORDERED: LOSARTAN POTASSIUM 25 MG TAB PO SCH (10:00)
--- NOTE | 2024-10-30 16:09 | DVHSR ---
APPROVED REPORT EXAM: Two-dimensional and M-mode echocardiogram with Doppler and color Doppler. INDICATION Chest Pain RISK FACTORS Height: 4'11", DIMENSIONS LVDd3.7 (3.8-5.7cm)LA (2D)3.5 (1.9-4.0cm)Aortic Root (2.0-3.7cm) LVDs2.3 (2.5-4.0cm)LA (MM) (1.9-4.0cm)Aortic Cusp Exc (1.5-2.0cm) EF (%) 70.0 (55-70%)Rt. Atrium (1.9-4.0cm)Asc. Aorta cm IVSd1.0 (0.7-1.1cm)RV (D) (1.8-2.4cm) PWd0.9 (0.7-1.1cm) Mitral Valve MitralMitral Stenosis E/A ratio0.02D MVAcm2 Other Information Quality : Technically LimitedRhythm : Technically limited study due to body habitus and patient position. Post [facility] Conclusion Sinus rhythm. Concentric LVH with left atrial enlargement. Valves appear to be structurally normal. Left ventricular systolic performance is preserved at 60% with normal RV function. Dopplers unremarkable. No pericardial effusion masses or vegetations.
== END 2024-10-29 18:35 | disposition home or self-care (01) | DRG 287 ==
LOC: CENTRAL 20:08 → TELE-CENTR 20:50
PROVIDERS: ADMIT Internal Medicine; ATTEND Internal Medicine
PROC: 4A023N8 Measurement of Cardiac Sampling and Pressure, Bilateral, Percutaneous Approach (ICD-10-PCS; principal; 2024-10-29)
PROC: B211YZZ Fluoroscopy of Multiple Coronary Arteries using Other Contrast (ICD-10-PCS; 2024-10-29)
PROC: B215YZZ Fluoroscopy of Left Heart using Other Contrast (ICD-10-PCS; 2024-10-29)
DX: I25.110 Atherosclerotic heart disease of native coronary artery with unstable angina pectoris (principal); I10 Essential (primary) hypertension; E78.5 Hyperlipidemia, unspecified; M79.7 Fibromyalgia; J45.909 Unspecified asthma, uncomplicated; Z95.0 Presence of cardiac pacemaker; I25.2 Old myocardial infarction; Z80.1 Family history of malignant neoplasm of trachea, bronchus and lung; Z95.5 Presence of coronary angioplasty implant and graft; Z79.82 Long term (current) use of aspirin; E11.40 Type 2 diabetes mellitus with diabetic neuropathy, unspecified
CPT/HCPCS: 36415; 80048; 80061; 83735; 83880; 84443; 84484; 85025; 85610; 93306; 93458; 99152; G0378; J2250